=== PATIENT | male | born 1965 | race African-American/Black ===

== ENCOUNTER 2021-02-14 14:25 | Emergency (ER) | payer OTHER ==
[2021-02-14] MEDS ORDERED: IBUPROFEN 600 MG TABLET (FP) PO ONE ×2 (14:43→14:45)
[2021-02-14 14:53] VITALS: BP 145/79; PULSE 82; TEMP 98; BMI 36.3
== END 2021-02-14 14:54 | disposition home or self-care (01) ==
LOC: FER 14:25
DX: S16.1XXA Strain of muscle, fascia and tendon at neck level, initial encounter (principal); V49.40XA Driver injured in collision with unspecified motor vehicles in traffic accident, initial encounter
CPT/HCPCS: 99283-25

== ENCOUNTER 2021-03-04 11:34 | Emergency (ER) | payer OTHER ==
[2021-03-04] MEDS ORDERED: ACETAMINOPHEN 325 MG TABLET (FP) PO ONE (11:40)
[2021-03-04 11:42] VITALS: BP 134/85; PULSE 84; TEMP 98.5; BMI 36.6
[2021-03-04] MEDS ORDERED: ACETAMINOPHEN 325 MG TABLET (FP) ONE (12:00)
== END 2021-03-04 12:09 | disposition home or self-care (01) ==
LOC: FER 11:34
DX: M54.50 Low back pain, unspecified (principal)
CPT/HCPCS: 99283-25

== ENCOUNTER 2021-06-17 09:44 | Day surgery (SDC) | payer OTHER ==
[2021-06-16 14:24] VITALS: BMI 34.0
[2021-06-17 12:26] VITALS: TEMP 96.9
[2021-06-17 12:38] VITALS: BP 113/72; PULSE 80
== END 2021-06-17 13:08 | disposition home or self-care (01) ==
LOC: FASU-ENDO 09:44
PROVIDERS: ATTEND Internal Medicine Gastroenterology
PROC: 0DJD8ZZ Inspection of Lower Intestinal Tract, Via Natural or Artificial Opening Endoscopic (ICD-10-PCS; principal; 2021-06-17 11:57)
DX: Z12.11 Encounter for screening for malignant neoplasm of colon (principal); K64.0 First degree hemorrhoids; K57.30 Diverticulosis of large intestine without perforation or abscess without bleeding